=== PATIENT | male | born 1950 | race African-American/Black ===

== ENCOUNTER 2021-05-02 07:19 | Day surgery (SDC) | payer OTHER ==
[2021-05-01 10:52] VITALS: BMI 32.5
[2021-05-02] MEDS ORDERED: LIDOCAINE HCL/PF 2% SDV 5ML VIAL ONE (08:14)
[2021-05-02] MEDS ORDERED: PROPOFOL 20 ML ONE ×4 (08:14)
[2021-05-02 09:11] VITALS: TEMP 97.7
[2021-05-02 11:01] VITALS: BP 110/68; PULSE 80
== END 2021-05-02 10:30 | disposition home or self-care (01) ==
LOC: FASU-ENDO 07:19
PROVIDERS: ATTEND Internal Medicine Gastroenterology
PROC: 0DBN8ZX Excision of Sigmoid Colon, Via Natural or Artificial Opening Endoscopic, Diagnostic (ICD-10-PCS; 2021-05-02)
PROC: 0DBK8ZX Excision of Ascending Colon, Via Natural or Artificial Opening Endoscopic, Diagnostic (ICD-10-PCS; 2021-05-02)
PROC: 3E0H8KZ Introduction of Other Diagnostic Substance into Lower GI, Via Natural or Artificial Opening Endoscopic (ICD-10-PCS; 2021-05-02)
PROC: 0DBK8ZX Excision of Ascending Colon, Via Natural or Artificial Opening Endoscopic, Diagnostic (ICD-10-PCS; principal; 2021-05-02 08:35)
DX: Z12.11 Encounter for screening for malignant neoplasm of colon (principal); D12.2 Benign neoplasm of ascending colon; D12.5 Benign neoplasm of sigmoid colon; Z80.0 Family history of malignant neoplasm of digestive organs